=== PATIENT | male | born 1975 | race Caucasian/White ===

== ENCOUNTER 2017-02-10 05:23 | Emergency (ER) | payer BC ==
[~2017-02-10] VITALS: Ht 188 cm; Wt 77.0 kg
[2017-02-10 05:25] VITALS: TEMP 36.5; Ht 188 cm; Wt 77.0 kg
[2017-02-10] MEDS ORDERED: HYDROmorphone INJ 2 MG/ML SYR/VIAL IM STA (05:37)
[2017-02-10] MEDS ORDERED: AZAT100T PO (05:57)
[2017-02-10] MEDS ORDERED: HYDROmorphone INJ 1 MG/ML SYR IM STA (06:16)
[2017-02-10] MEDS ORDERED: ONDANSETRON 4MG OD TAB PO STA (06:38)
[2017-02-10] MEDS ORDERED: ONDANSETRON 4MG OD TAB ONE (06:46)
--- NOTE | 2017-02-10 06:52 | DIAGNOSTIC IMAGING REPORT ---
LEFT SHOULDER MIN 2 VIEWS ROUTINE CLINICAL HISTORY: Dislocation status post reduction COMPARISON: None. DISCUSSION: 2 views reveal no fractures or dislocations. IMPRESSION: 2 view study revealing no acute fractures or dislocations. Electronically signed by: Arnol Celaya M.D. 02/10/2017 6:51 AM Dictated Date/Time: 02/10/2017 6:50 AM
[2017-02-10] MEDS ORDERED: HYDR-5688 PO (07:11)
--- NOTE | 2017-02-10 07:18 | EMERGENCY ROOM VISIT NOTE ---
History Report prepared by Jose: Willy Friend Under the Supervision of: Dr. Tram Ferrara M.D. First contact with patient: 05:37 Chief Complaint: SHOULDER DISLOCATION Stated Complaint: DISLOCATED LEFT SHOULDER History of Present Illness The patient is a 41 year old male who presents to the Emergency Room with complaints of a possible constant left shoulder dislocation occurring just prior to arrival. He states that he dislocated his shoulder in his sleep. He states that the pain woke him from his sleep. The patient states that movement of his arm worsens and nothing improves his pain. He has a history of 10 previous shoulder dislocations, and has dislocated his shoulder in his sleep once before. He follows with Dr. Lee of orthopedics for his dislocations. Source of History: patient Onset: Just prior to arrival Position: shoulder (left) Quality: other (possible dislocation) Timing: constant Modifying Factors (Worsening): movement (of arm) Modifying Factors (Relieving): other (none) Review of Systems See HPI for pertinent positives & negatives. A total of 10 systems reviewed and were otherwise negative. Past Medical & Surgical Medical Problems: (1) Cholecystectomy (2) RECUR DISLOCAT-SHLDER Family History No pertinent family history stated. Social History Smoking Status: Never Smoker Alcohol Use: none Marital Status: Housing Status: lives with family Occupation Status: employed Current/Historical Medications Scheduled Azathioprine (Azasan), 100 MG PO DAILY Scheduled PRN Hydrocodone/Acetaminophen 5MG/325MG ([place] 5MG/325MG), 1-2 TABLETS PO Q6 PRN for Pain Allergies Coded Allergies: Amoxicillin (Verified Allergy, Unknown, RASH, 02/10/17) Penicillins (Unverified Allergy, Unknown, RASH, 02/10/17) Physical Exam Vital Signs Date Time Temp Pulse Resp B/P Pulse Ox O2 Delivery O2 Flow Rate FiO2 02/10/17 07:39 67 18 116/59 99 02/10/17 06:57 65 18 111/54 99 Room Air 02/10/17 05:45 105/65 02/10/17 05:25 36.5 85 20 97 Room Air Physical Exam Vital signs reviewed. General: Well-appearing male, in some discomfort. HEENT: No scleral icterus, PERRLA, neck supple. Atraumatic. Cardiovascular: Regular rate and rhythm, no extra sounds. Pulmonary: Clear to auscultation bilaterally, normal work of breathing. Abdomen: Soft, nontender, nondistended, positive bowel sounds. Musculoskeletal: No peripheral edema. Anterior shoulder dislocation to the left with palpable defect near the AC joint. Neurologic: Patient awake alert and oriented x 3 Skin: Warm, dry, no rash Medical Decision & Procedures ER Provider Diagnostic Interpretation: X-ray results as stated below per interpretation by me and the radiologist: LEFT SHOULDER MIN 2 VIEWS ROUTINE IMPRESSION: 2 view study revealing no acute fractures or dislocations. Electronically signed by: Arnol Celaya M.D. Medications Administered Medications (Trade) Dose Ordered Sig/Yung Route Start Time Stop Time Status Last Admin Dose Admin Hydromorphone HCl (Dilaudid Inj) 2 mg NOW STAT IM 02/10/17 05:37 02/10/17 05:38 DC 02/10/17 05:42 2 MG Hydromorphone HCl (Dilaudid Inj) 1 mg NOW STAT IM 02/10/17 06:16 02/10/17 06:17 DC 02/10/17 06:24 1 MG Ondansetron HCl (Zofran Odt) 4 mg ONE STAT PO 02/10/17 06:38 02/10/17 06:40 DC 02/10/17 06:41 4 MG Procedure Anterior Shoulder Dislocation Reduction Indication: Left shoulder deformity Verbal consent obtained. Risks and benefits were explained with the usual customary discussion. A time out was taken. Neurovascular examination before the procedure revealed neurovascularly intact. The left shoulder glenohumeral dislocation was reduced by placing the patient prone and applying gentle downward inline traction on the humerus, with the elbow flexed at 90 degrees, while scapula manipulation was applied. This resulted in an easy reduction without complication. Neurovascular examination after the procedure was intact. The patient had significant pain relief and tolerated the procedure well. ED Course 0532: Past medical records reviewed. The patient was evaluated in room B3B. A complete history and physical examination was performed. 0537: Ordered Dilaudid Inj 2 mg IM. 0610: I attempted to reduce the patients shoulder but was unsuccessful. 0616: Ordered Dilaudid Inj 1 mg IM. 0632: I conducted the shoulder reduction successfully. See the procedure note for details. 0638: Ordered Zofran Odt 4 mg PO. 0710: Upon reevaluation, the patient appeared to have improvement of his symptoms. I discussed findings with him. The patient verbalized agreement of the treatment plan. He was discharged home. Medical Decision Differential diagnosis: Etiologies such as fracture, dislocation, neurovascular compromise, compartment syndrome, soft tissue injury, as well as others were entertained. This patient was evaluated and appeared to be in significant discomfort. Patient was given 2 mg of IM Dilaudid and placed in a prone position. A shoulder reduction was attempted however unsuccessful due to the amount of pain. The patient was given Dilaudid 1 mg IM and rested. A second attempt was successful, please see my procedure note above. Postprocedural x-ray reveals no fracture or dislocation. He was placed in a sling and asked to follow-up with orthopedics. He will return to the ER for worsening of symptoms or any medical concerns. Impression Primary Impression: Dislocation of left shoulder joint Scribe Attestation The scribe's documentation has been prepared under my direction and personally reviewed by me in its entirety. I confirm that the note above accurately reflects all work, treatment, procedures, and medical decision making performed by me. Departure Information Dispostion Home / Self-Care Prescriptions Hydrocodone/Acetaminophen 5MG/325MG ([place] 5MG/325MG) Tab 1-2 TABLETS PO Q6 Y for Pain, #20 TAB Prov: Tram Ferrara M.D. 02/10/17 Referrals Romain Esquivel M.D. (PCP) Forms HOME CARE DOCUMENTATION FORM, IMPORTANT VISIT INFORMATION, WORK / SCHOOL INSTRUCTIONS Patient Instructions My [facility] Additional Instructions Diagnosis: Left shoulder dislocation Ibuprofen 600 mg every 6 hours as needed for pain with food. [place] one to 2 tabs every 6 hours as needed for more severe pain. Do not drive or take Tylenol with this medication. Ice the shoulder intermittently for 24-48 hours. Wear the sling until you are reevaluated by Dr. Lee. Please call today for an appointment Return to the ER for worsening of symptoms or any medical concerns. Problem Qualifiers Primary Impression: Dislocation of left shoulder joint Encounter type: initial encounter Qualified Codes: S43.005A - Unspecified dislocation of left shoulder joint, initial encounter
[2017-02-10 07:39] VITALS: BP 116/59; PULSE 67; O2SAT 99
== END 2017-02-10 07:40 | disposition home or self-care (01) ==
LOC: C.EDB 05:24
DX: S43.005A Unspecified dislocation of left shoulder joint, initial encounter (principal); X58.XXXA Exposure to other specified factors, initial encounter; Z90.49 Acquired absence of other specified parts of digestive tract; Y93.84 Activity, sleeping

== ENCOUNTER → 2018-06-16 | Outpatient (CLI) | payer BC ==
[~2018-06-16] MED LIST: AZAT100T PO
--- NOTE | 2018-06-16 10:02 | DIAGNOSTIC IMAGING REPORT ---
ULTRASOUND TESTES AND SCROTUM CLINICAL HISTORY: Testicular pain. COMPARISON STUDY: No priors. TECHNIQUE: Real-time, grayscale, and color Doppler sonography of the testes and scrotum is performed. Images are reviewed in the transverse and longitudinal planes. FINDINGS: The testes are normal in size and homogeneous in echotexture. The right testis measures 4.3 x 2.2 x 3.1 cm and the left testis measures 4.1 x 2.2 x 2.4 cm. No intratesticular mass is seen. Testicular blood flow is normal and symmetric. Normal Doppler waveforms are identified in both testes. The epididymal heads are normal in appearance. The right epididymal head measures 0.9 cm in length and the left epididymal head measures 1.2 cm in length. A 7 mm epididymal head cyst is seen on the right. There are small bilateral varicoceles which measure up to 4 mm. No hydrocele is seen. IMPRESSION: 1. Unremarkable sonographic appearance of the testes. 2. Bilateral varicoceles. Electronically signed by: Sacha Ta M.D. 06/16/2018 10:01 AM Dictated Date/Time: 06/16/2018 10:00 AM
--- NOTE | 2018-06-16 10:05 | DIAGNOSTIC IMAGING REPORT ---
ULTRASOUND RIGHT LOWER EXTREMITY NONVASCULAR CLINICAL HISTORY: Lump in the right thigh of 10 years duration. COMPARISON STUDY: No priors. FINDINGS: Real-time, grayscale, and color flow sonography of the soft tissues of the right thigh is performed at the indicated site of interest. There is a 0.7 x 0.3 x 0.5 cm hypoechoic/cystic structure just deep to the dermal surface of the site of interest. No internal flow seen on color imaging. This demonstrates a thin tail which extends to the skin surface and is consistent with a small sebaceous cyst. IMPRESSION: Findings are consistent with a subcentimeter sebaceous cyst at the indicated site of interest. Electronically signed by: Sacha Ta M.D. 06/16/2018 10:04 AM Dictated Date/Time: 06/16/2018 10:02 AM
== END | disposition home or self-care (01) ==
LOC: C.ULTR 09:10
PROVIDERS: ATTEND Internal Medicine
DX: R22.41 Localized swelling, mass and lump, right lower limb (principal); N50.819 Testicular pain, unspecified; S39.94XA Unspecified injury of external genitals, initial encounter; X58.XXXA Exposure to other specified factors, initial encounter